=== PATIENT | female | born 1975 | race Caucasian/White ===

== ENCOUNTER 2023-05-29 11:01 | Emergency (ER) | payer OTHER ==
[~2023-05-29] VITALS: Ht 167.6 cm; Wt 117.9 kg
[2023-05-29 12:00] LABS: CALCIUM, SERUM 9.5 mg/dL (8.5-10.1); CREATININE 0.8 mg/dL (0.6-1.3); POTASSIUM 3.3 mmol/L (3.5-5.1)
[2023-05-29 12:08] LABS: BASOPHILS # (AUTO) 0.1 K/uL (0.0-0.2); BASOPHILS % (AUTO) 0.7 % (0.0-2.0); EOSINOPHILS # (AUTO) 0.2 K/uL (0.0-0.7); EOSINOPHILS % (AUTO) 1.7 % (0.0-6.0); HEMATOCRIT 42 % (33-45); HEMOGLOBIN 12.9 g/dL (11.5-14.8); LYMPHOCYTES # (AUTO) 1.3 K/uL (0.8-4.8); LYMPHOCYTES % (AUTO) 12.8 % (20.0-44.0); MEAN CORPUSCULAR HEMOGLOBIN 22 PG (26.0-33.0); MEAN CORPUSCULAR HGB CONC 31 g/dl (31.0-36.0); MEAN CORPUSCULAR VOLUME 72 fL (82-100); MONOCYTES # (AUTO) 0.7 K/uL (0.1-1.30); MONOCYTES % (AUTO) 6.9 % (2.0-12.0); NEUTROPHILS # (AUTO) 7.8 K/uL (1.8-8.9); NEUTROPHILS % (AUTO) 77.9 % (43.0-81.0); PLATELET COUNT (AUTO) 443 K/uL (150-450); RED BLOOD CELL COUNT(AUTO) 5.78 MIL/uL (4.0-5.2); RED CELL DISTRIBUTION WIDTH 20.8 % (11.5-15.0)
[2023-05-29] MEDS ORDERED: LABETALOL HCL IV 100MG VIAL IV ONE (12:30)
[2023-05-29] MEDS ORDERED: LABETALOL HCL IV 100MG VIAL ONE (13:02)
[2023-05-29 15:52] VITALS: BP 173/75; TEMP 98.2; O2SAT 97
== END 2023-05-29 15:53 ==
LOC: ER 11:05
DX: S09.8XXA Other specified injuries of head, initial encounter (principal); I11.0 Hypertensive heart disease with heart failure; I50.9 Heart failure, unspecified; E11.9 Type 2 diabetes mellitus without complications; W07.XXXA Fall from chair, initial encounter; Y93.89 Activity, other specified; Y92.89 Other specified places as the place of occurrence of the external cause; Y99.8 Other external cause status
CPT/HCPCS: 99285; 72125; 96374; 73080; 70450; 85025; 80048; 36415; 84484; J3490